=== PATIENT | male | born 1970 | race Caucasian/White ===

== ENCOUNTER 2022-09-05 14:06 | Outpatient (REF) | payer MEDICARE, SELFPAY ==
[2022-09-05 20:45] LABS: ALT 43 U/L (16-63); AST 17 U/L (15-37); Alkaline Phosphatase 73 U/L (46-116); Bilirubin, Total 0.6 mg/dL (0.2-1.0); Calculated LDL 117 mg/dL (<100); Chloride 104 mmol/L (98-107); Cholesterol 189 mg/dL (<200); Glucose 65 mg/dL (74-106); HDL Cholesterol 49 mg/dL (40-60); Potassium 3.4 mmol/L (3.5-5.1); Sodium 144 mmol/L (136-145); Total Protein 7.4 g/dL (6.4-8.2); Triglyceride 117 mg/dL (<150)
[2022-09-05 20:54] LABS: BUN 11 mg/dL (7-18); CREATININE 1.1 mg/dL (0.70-1.30); Calcium 9.2 mg/dL (8.5-10.1); Estimated GFR 80.77 (mL/min/1.73m2)
[2022-09-06 21:49] LABS: PSA, Screening 0.8 ng/mL (<=3.5)
== END 2022-09-05 14:07 | disposition home or self-care (01) ==
LOC: NCHCN 14:06
PROVIDERS: Visit Provider Nurse Practitioner Family
DX: I10 Essential (primary) hypertension (principal); Z13.220 Encounter for screening for lipoid disorders; Z12.5 Encounter for screening for malignant neoplasm of prostate
CPT/HCPCS: 80053; 80061; 84153

== ENCOUNTER 2022-11-28 17:19 | Outpatient (REF) | payer MEDICARE, MEDICAID, SELFPAY ==
[2022-11-28 21:17] LABS: Abs Immature Grans 0.02 10^3/uL (0.0-0.06); Absolute Basophil Count 0.03 10^3/uL (0.0-0.2); Absolute Eosinophil Count 0.43 10^3/uL (0.0-0.7); Absolute Lymphocyte Count 1.73 10^3/uL (1.2-3.4); Absolute Monocyte Count 0.55 10^3/uL (0.1-0.8); Absolute Neutrophil Count 3.49 10^3/uL (1.2-6.7); Basophils % 0.5; Eosinophils % 6.9; HCT 35.9 % (40.0-50.0); HGB 11.5 g/dL (13.5-17.5); Immature Grans % 0.3; Lymphocytes % 27.7; MCH 29.9 pg (27.0-33.0); MCV 94 fL (80-95); MPV 8.8 fL (8.0-11.0); Monocytes % 8.8; Neutrophils % 55.8; Platelet Count 280 10^3/uL (130-400); RBC 3.84 10^6/uL (4.36-5.78); RDW 13.6 % (11.8-14.1); RDW-SD 46.1 fL; WBC 6.25 10^3/uL (4.4-10.8)
[2022-11-28 21:36] LABS: ALT 24 U/L (16-63); AST 12 U/L (15-37); Albumin 3.8 g/dL (3.4-5.0); Alkaline Phosphatase 84 U/L (46-116); Anion Gap 6.8 mmol/L (3-11); BUN 16 mg/dL (7-18); Bilirubin, Total 0.5 mg/dL (0.2-1.0); CO2 29.2 mmol/L (21.0-32.0); CREATININE 1.1 mg/dL (0.70-1.30); Calcium 8.9 mg/dL (8.5-10.1); Chloride 104 mmol/L (98-107); Estimated GFR 80.27 (mL/min/1.73m2); Glucose 90 mg/dL (74-106); NT-proBNP 116 pg/mL (<300); Potassium 4.2 mmol/L (3.5-5.1); Sodium 140 mmol/L (136-145); Total Protein 7.3 g/dL (6.4-8.2)
== END 2022-11-28 17:20 | disposition home or self-care (01) ==
LOC: NCHCN 17:19
PROVIDERS: PCP Family Medicine; Visit Provider Family Medicine
DX: M79.89 Other specified soft tissue disorders (principal); L84 Corns and callosities
CPT/HCPCS: 80053; 83880; 85025

== ENCOUNTER 2023-01-21 20:02 | Outpatient (REF) | payer MEDICARE, MEDICAID, SELFPAY ==
[2023-01-21 21:44] LABS: Iron 65 ug/dL (65-175); Total Iron Binding Capacity 284 ug/dL (250-450)
[2023-01-21 22:40] LABS: Ferritin 124 ng/mL (26-388)
== END 2023-01-21 20:03 | disposition home or self-care (01) ==
LOC: NCHCN 20:02
PROVIDERS: PCP Family Medicine; Visit Provider Family Medicine
DX: D64.9 Anemia, unspecified (principal)
CPT/HCPCS: 82728; 83540; 83550

== ENCOUNTER → 2023-04-09 11:03 | Outpatient (BNVA) | payer MEDICARE, MEDICAID, SELFPAY | PROVIDERS: PCP Family Medicine; Referring Provider Family Medicine; Visit Provider Podiatrist | DX: G60.3 Idiopathic progressive neuropathy (principal); L97.512 Non-pressure chronic ulcer of other part of right foot with fat layer exposed; R26.9 Unspecified abnormalities of gait and mobility; G80.9 Cerebral palsy, unspecified; L60.3 Nail dystrophy; R60.0 Localized edema; R20.9 Unspecified disturbances of skin sensation; L65.9 Nonscarring hair loss, unspecified; R09.89 Other specified symptoms and signs involving the circulatory and respiratory systems; I73.89 Other specified peripheral vascular diseases | CPT/HCPCS: 11720 ==

== ENCOUNTER → 2023-04-09 22:13 | Outpatient (CLI) | payer MEDICARE, MEDICAID, SELFPAY ==
--- NOTE | 2023-04-09 11:45 | DI.RAD_ITS ---
Exam(s) XR FOOT RT COMPLETE EXAM: XR FOOT RT COMPLETE CLINICAL HISTORY: Possible Charcot right foot, pain rt foot, edema, M79.671, R60.0. TECHNIQUE: 2D digital imaging was performed of the right foot. Three images were obtained. AP, obl ique and lateral views were obtained. COMPARISON: No exams were available for comparison FINDINGS: BONES: No acute fracture is present. No bony destructive lesion is seen. There is an enthesophyte at the posterior calcaneus. JOINTS: No dislocation present. The joint spaces are well maintained. SOFT TISSUE: There is soft tissue swelling of the great toe and adjacent to the 1st MTP joint. No so ft tissue air is seen. IMPRESSION: 1. Soft tissue swelling of the great toe no subcutaneous gas is seen. 2. No destructive changes are seen to suggest osteomyelitis. Inflammatory arthritis cannot be exclud ed. Please correlate clinically. DATA REPOSITORY: RADIATION DOSE DELIVERED:
--- NOTE | 2023-04-09 12:43 | DI.RAD_ITS ---
Exam(s) XR FOOT LT COMPLETE EXAM: XR FOOT LT COMPLETE CLINICAL HISTORY: Pain in left foot, M79.672. TECHNIQUE: 2D digital imaging was performed of the left foot. Three images were obtained. AP, obli que and lateral views were obtained. COMPARISON: No exams were available for comparison FINDINGS: BONES: No acute fracture is present. No bony destructive lesion is seen. There has been an amputation of the great toe to the level of the 1st MTP joint. JOINTS: No dislocation present. SOFT TISSUE: There is soft tissue swelling at the amputation site. No soft tissue gas is identified. IMPRESSION: 1. Amputation of the great toe. No destructive changes are seen to suggest acute osteomyelitis. 2. Soft tissue swelling at the amputation site. No soft tissue gas is seen. DATA REPOSITORY: RADIATION DOSE DELIVERED:
== END ==
PROVIDERS: PCP Family Medicine; Visit Provider Podiatrist
DX: M79.671 Pain in right foot (principal); R60.0 Localized edema; M79.672 Pain in left foot; Z89.422 Acquired absence of other left toe(s)
CPT/HCPCS: 11719; 11720; 73630